=== PATIENT | female | born 1955 | race Caucasian/White ===

== ENCOUNTER 2018-10-13 08:23 | Observation (INO) ==
--- NOTE | 2018-10-13 08:25 | Emergency Department Note ---
Disposition Clinical Impression: TIA (transient ischemic attack) Disposition: Admitted As Inpatient Condition: Good Referrals: Markos Matthews MD [Primary Care Provider] - Forms: ED Satisfaction Letter Time of Disposition: 10:01 Headache HPI - General Chief Complaint: ED General Medical Stated Complaint: elevated BP, HEADACHE Time Seen by Provider: 10/13/18 08:25 Source: patient Mode of arrival: ambulatory Limitations: no limitations Nursing Notes Reviewed: Yes Vital Signs Reviewed: Yes - History of Present Illness HPI Narrative: 63-year-old female who presents today with headache and high blood pressure and not feeling well. She states she is a history of headaches and states she did not feel well this morning. She been noticing flashing lights in the left side of her eye. She states she had difficulty focusing and that her eye feels funny. She then developed headache. She states took her blood pressure was very elevated. She has a history of hypertension. She did take her blood pressure medicines this morning. She seen in sales technician home theater about it who told her that she may be having migraines that there was nothing wrong with her retina. She talked to her primary care physician about it however, she has not had a formal migraine evaluation by a neurologist. Pt Subjective Complaint: headache - Related Data Home Medications Medication Instructions Recorded Confirmed Atenolol [Tenormin] 100 mg PO DAILY 04/11/16 10/13/18 Tramadol HCl [Ultram] 50 mg PO BID 04/11/16 10/13/18 Ubidecarenone [Co Q-10] 10 mg PO DAILY 04/26/16 10/13/18 Atorvastatin Calcium [Lipitor] 20 mg PO HS 10/13/18 10/13/18 Baclofen 5 mg PO AD PRN 10/13/18 10/13/18 Diclofenac Sodium [Voltaren] 100 gm TP AD PRN 10/13/18 10/13/18 Esomeprazole Magnesium [Nexium] 20 mg PO DAILY 10/13/18 10/13/18 Lisinopril [Zestril] 10 mg PO DAILY 10/13/18 10/13/18 Allergies Allergy/AdvReac Type Severity Reaction Status Date / Time cephalexin [From Keflex] Allergy Hives Verified 11/27/16 16:29 hydromorphone [From Dilaudid] AdvReac Itching Verified 10/04/17 16:29 Review of Systems: All other systems are negative except as noted/marked Chart generated with voice recognition software Nursing notes reviewed Old records reviewed Headache PMH - Past Medical History Medical history: Reports: diabetes, hypertension Female Surgical History: Reports: cholecystectomy, hysterectomy, other Psychiatric history: Reports: anxiety - Social History Smoking Status: Never smoker Alcohol use: Reports: none Drug use: Reports: none Physical Exam General: NAD, VSS Head: normocephalic, atraumatic Eyes: EOMI, PERRLA mouth: moist mucous membranes Neck: NO CLA, Supple Chest wall: normal rise, no crepitus, no deformity noted Lungs: moving air well, no distress Heart: RRR, no murmur Abd: soft, nontender, BS normal : deferred MSK: strength equal in all four extremities Ext: moves all four extremities, no obvious deformities Skin: cap refill normal, warm, dry neuro : CN2-12 grossly intact, A&Ox3 Psych: normal affect, not anxious NIH 0 Course Vital Signs Temperature 98.7 F 10/13/18 08:24 Pulse Rate 72 10/13/18 08:24 Respiratory Rate 18 10/13/18 08:24 Blood Pressure 179/72 10/13/18 08:24 O2 Sat by Pulse Oximetry 96 10/13/18 08:24 Temperature 98.7 F 10/13/18 08:24 Pulse Rate 62 10/13/18 09:50 Respiratory Rate 16 10/13/18 09:50 Blood Pressure 172/80 10/13/18 09:50 O2 Sat by Pulse Oximetry 98 10/13/18 09:50 Oxygen Delivery Oxygen Delivery Room Air Headache - MDM Narrative Medical decision making narrative: 63-year-old female who presents today with headache not feeling well left-sided facial tingling disturbance the left visual field and perioral numbness. She states this is new for her. On arrival her NIH was 0. She has been told in the past that she may have migraines but she has had no neurologic workup for these. She has seen an sales technician home theater who told her that it was not her eyes and she seen these flashing things in the past. While she has been here she has been hypertensive. She did take her blood pressure medicine this morning. I did end up giving her clonidine as her blood pressure never did start to come down. She states that the Phenergan did kind of help with her headache some. I discussed the fact that I think she needs a TIA workup including an MRI and possibly Sa lter sounds. She is comfortable and agreeable with this plan. I spoke with Dr. Dong who agreed to accept the patient for a TIA rule out [id number]: dr dong accepted the patient - Differential Diagnosis Differential Diagnosis: Likely: migraine, tension headache, subarachnoid hemorrhage, headache - Medical Records Medical records reviewed: Yes I reviewed the patient's medical records. - Lab Data Lab results reviewed: Yes I reviewed the patient's lab results. Result diagrams: 10/13/18 08:56 10/13/18 08:56 Lab Results 10/13/18 10/13/18 10/13/18 Range/Units 08:56 08:56 08:56 WBC 10.0 (4.3-11.1) K/mcL RBC 4.98 H (3.82-4.97) M/mcL Hgb 14.7 (11.5-15.4) g/dL Hct 43.4 (35.3-44.9) % MCV 87.1 (83.0-100.0) fL MCH 29.5 (28.0-33.3) pg MCHC 33.9 (31.6-35.5) g/dL RDW 11.9 (11.5-14.5) % Plt Count 323 (140-400) K/mcL MPV 10.3 (9.4-12.4) fL Immature Gran % 0.4 (0-4) % Seg Neutrophils % 68.0 % Lymphocytes % 24.6 % Monocytes % 4.9 % Eosinophils % 1.5 % Basophils % 0.6 % Neutrophils # 6.8 (1.6-8.9) K/mcL Lymphocytes # 2.5 (0.6-4.6) K/mcL Monocytes # 0.5 (0.0-1.3) K/mcL Eosinophils # 0.2 (0.0-0.6) K/mcL Basophils # 0.1 (0.0-0.2) K/mcL PT 10.8 (9.4-12.1) Seconds INR 1.0 APTT 33.0 (26.0-36.0) Seconds Sodium (136-145) mEq/L Potassium (3.5-5.1) mEq/L Chloride (98-107) mEq/L Carbon Dioxide (23-29) mEq/L BUN (8-23) mg/dL Creatinine (0.60-1.20) mg/dL Est GFR ( Amer) (> 60) Est GFR (Non-Af Amer) (> 60) BUN/Creatinine Ratio (6-26) Glucose (70-105) mg/dL Calculated Osmolality (280-300) Calcium (8.6-10.3) mg/dL Magnesium 1.9 (1.6-2.6) mg/dL Troponin I (< 0.04) ng/mL Urine Color (Yellow) Urine Clarity (Clear) Urine pH (5.0-8.0) pH Units Ur Specific [place] (1.010-1.025) Urine Protein (Neg-Trace) mg/dL Urine Glucose (UA) (Normal) mg/dL Urine Ketones (Negative) mg/dL Urine Blood (Negative) Urine Nitrite (Negative) Urine Bilirubin (Negative) Urine Urobilinogen (Normal) mg/dL Ur Leukocyte Esterase (Negative) Ur Culture Indicated? (NO) 10/13/18 10/13/18 Range/Units 08:56 09:37 WBC (4.3-11.1) K/mcL RBC (3.82-4.97) M/mcL Hgb (11.5-15.4) g/dL Hct (35.3-44.9) % MCV (83.0-100.0) fL MCH (28.0-33.3) pg MCHC (31.6-35.5) g/dL RDW (11.5-14.5) % Plt Count (140-400) K/mcL MPV (9.4-12.4) fL Immature Gran % (0-4) % Seg Neutrophils % % Lymphocytes % % Monocytes % % Eosinophils % % Basophils % % Neutrophils # (1.6-8.9) K/mcL Lymphocytes # (0.6-4.6) K/mcL Monocytes # (0.0-1.3) K/mcL Eosinophils # (0.0-0.6) K/mcL Basophils # (0.0-0.2) K/mcL PT (9.4-12.1) Seconds INR APTT (26.0-36.0) Seconds Sodium 138 (136-145) mEq/L Potassium 4.3 (3.5-5.1) mEq/L Chloride 104 (98-107) mEq/L Carbon Dioxide 25 (23-29) mEq/L BUN 18 (8-23) mg/dL Creatinine 0.70 (0.60-1.20) mg/dL Est GFR ( Amer) > 60 (> 60) Est GFR (Non-Af Amer) > 60 (> 60) BUN/Creatinine Ratio 26 (6-26) Glucose 128 H (70-105) mg/dL Calculated Osmolality 290 (280-300) Calcium 9.1 (8.6-10.3) mg/dL Magnesium (1.6-2.6) mg/dL Troponin I < 0.03 (< 0.04) ng/mL Urine Color Light Yellow (Yellow) Urine Clarity Clear (Clear) Urine pH 5.5 (5.0-8.0) pH Units Ur Specific [place] 1.010 (1.010-1.025) Urine Protein Negative (Neg-Trace) mg/dL Urine Glucose (UA) Normal (Normal) mg/dL Urine Ketones Negative (Negative) mg/dL Urine Blood Negative (Negative) Urine Nitrite Negative (Negative) Urine Bilirubin Negative (Negative) Urine Urobilinogen Normal (Normal) mg/dL Ur Leukocyte Esterase Negative (Negative) Ur Culture Indicated? NO (NO) - Radiology Data Radiology results reviewed: Yes I reviewed the patient's radiology results. EXAMINATION: CT OF THE HEAD WITHOUT CONTRAST 10/13/2018 9:46 am TECHNIQUE: CT of the head was performed without the administration of intravenous contrast. Dose modulation, iterative reconstruction, and/or weight based adjustment of the mA/kV was utilized to reduce the radiation dose to as low as reasonably achievable. COMPARISON: 07/30/2014. HISTORY: ORDERING SYSTEM PROVIDED HISTORY: headache, htn FINDINGS: BRAIN/VENTRICLES: There is no acute intracranial hemorrhage, mass effect or midline shift. No abnormal extra-axial fluid collection. The hsieh-white differentiation is maintained without evidence of an acute infarct. There is no evidence of hydrocephalus. ORBITS: The visualized portion of the orbits demonstrate no acute abnormality. SINUSES: The visualized paranasal sinuses and mastoid air cells demonstrate no acute abnormality. SOFT TISSUES/SKULL: No acute abnormality of the visualized skull or soft tissues. CT/CT head/brain wo con IMPRESSION: 1.No acute intracranial abnormality. D/ / Bradley Madrigal MD / Bradley Madrigal MD Interpreting Provider: Bradley Madrigal MD interp by myself neg - EKG Data EKG attestation: Yes I reviewed and interpreted this EKG. EKG results narrative: EKG interpreted by myself as sinus rhythm with a rate of [address] elevation NIH Stroke Scale - Level of Consciousness LOC: Alert - LOC Questions LOC Questions: Answers both correctly - LOC Commands LOC Commands: Performs both correctly - Best Gaze Best Gaze: Normal - Visual Visual: No visual loss - Facial Palsy Facial Palsy: Normal - Motor Arms Motor Arm-Left: No drift for 10 seconds Motor Arm-Right: No drift for 10 seconds - Motor Legs Motor Leg-Left: No drift for 5 seconds Motor Leg-Right: No drift for 5 seconds - Limb Ataxia Limb Ataxia: Normal, No Ataxia - Sensory Sensory: Normal - Best Language Best Language: No aphasia - Dysarthria Dysarthria: Normal - Extinction and Inattention Extinction and Inattention: Normal - NIHSS Total Score NIHSS Total Score: 0
[2018-10-13] MEDS ORDERED: *HR* Promethazine 25 MG/ML VIAL IVP ONE (08:30)
[2018-10-13] MEDS ORDERED: cloNIDine HCl 0.1 MG TABLET PO ONE (08:30)
[2018-10-13 09:07] LABS: Basophils # 0.1 K/mcL (0.0-0.2); Basophils % 0.6 %; Eosinophils # 0.2 K/mcL (0.0-0.6); Eosinophils % 1.5 %; Hematocrit 43.4 % (35.3-44.9); Hemoglobin 14.7 g/dL (11.5-15.4); Immature Granulocytes % 0.4 % (0-4); Lymphocytes # 2.5 K/mcL (0.6-4.6); Lymphocytes % 24.6 %; Mean Corpuscular HGB Conc 33.9 g/dL (31.6-35.5); Mean Corpuscular Hemoglobin 29.5 pg (28.0-33.3); Mean Corpuscular Volume 87.1 fL (83.0-100.0); Mean Platelet Volume 10.3 fL (9.4-12.4); Monocytes # 0.5 K/mcL (0.0-1.3); Monocytes % 4.9 %; Neutrophils # 6.8 K/mcL (1.6-8.9); Platelet Count 323 K/mcL (140-400); Red Blood Count 4.98 M/mcL (3.82-4.97); Red Cell Distribution Width 11.9 % (11.5-14.5)
[2018-10-13 09:11] LABS: Prothrombin Time 10.8 Seconds (9.4-12.1)
[2018-10-13 09:21] LABS: BUN/Creatinine Ratio 26 (6-26); Blood Urea Nitrogen 18 mg/dL (8-23); Calcium 9.1 mg/dL (8.6-10.3); Carbon Dioxide 25 mEq/L (23-29); Chloride 104 mEq/L (98-107); Glucose 128 mg/dL (70-105); Osmolality,Calculated 290 (280-300); Potassium 4.3 mEq/L (3.5-5.1); Sodium 138 mEq/L (136-145); eGFR For African Americans > 60 (> 60); eGFR For Non-African Americans > 60 (> 60)
[2018-10-13 09:23] LABS: Troponin I < 0.03 ng/mL (< 0.04)
--- NOTE | 2018-10-13 09:40 | Electrocardiograph Report ---
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
[2018-10-13 09:41] LABS: Bilirubin,Urine Negative (Negative); Blood,Urine Negative (Negative); Clarity,Urine Clear (Clear); Color,Urine Light Yellow (Yellow); Glucose,Urine (UA) Normal (Normal); Ketones,Urine Negative (Negative); Leukocyte Esterase,Urine Negative (Negative); Nitrite,Urine Negative (Negative); PH,Urine 5.5 pH Units (5.0-8.0); Protein,Urine Negative (Neg-Trace); Urobilinogen,Urine Normal (Normal)
[2018-10-13] MEDS ORDERED: Acetaminophen 325 MG TABLET PO PRN (11:02)
[2018-10-13] MEDS ORDERED: Naloxone 0.4 MG/ML INJ IVP PRN (11:02)
[2018-10-13] MEDS ORDERED: DICLOFENAC 1% GEL TP PRN (15:00)
[2018-10-13 15:06] VITALS: BP 112/66
--- NOTE | 2018-10-13 18:13 | Internal Med History&Physical ---
Date of Encounter: 10/13/18 Time of Encounter: 17:15 Assessment and Plan (1) Acute focal neurologic deficit with complete resolution Current visit: Yes Status: Acute She states she feels back to her baseline now except for mild headache. I told her I felt she very likely had a migraine component causing at least some and perhaps most of her symptoms. I recommended she discuss with her PCP and possibly see a neurologist for initiation of additional migraine prevention Rx. I told her atenolol can serve as a migraine prevention agent but she is pre sently having frequent headaches despite its use and would probably benefit from additional agent. I explained Imitrex could prove useful in aborting headaches. I told her I did not feel a brain MRI was necessary at this time since head CT in emergency room showed no significant pathology. Internal Medicine - H&P: HPI Chief complaint: Face numbness, scintillating scotoma Admitted From: Emergency Dept Plans for Post Hospital Care: Home History of present illness: Ms. Rock is a 63 year old female who came to emergency room stating she "felt funny" on awakening today. A short time later she noticed a "flashing light" in her left eye visual field. She reports her left face and lip area felt numb. She felt nauseated but did not vomit. She went to work but continued to not feel well. She checked her blood pressure and found it elevated at 210/100. She came to emergency room for evaluation and was admitted to [facility] for ongoing care needs. She reports 2 previous similar episodes of "flashing light". She saw an disciplinary hearing officer after the first episode several months ago and reports eye exam was unremarkable. He told her to return if symptoms recurred. She returned after the second episode and reports ophthalmologic exam again showed no findings. He told her it could be a migraine phenomenon. She spoke with her PCP Dr. Matthews about this and received a prescription for Imitrex for prn use. She has not taken any Imitrex to date. She reports she has had headaches frequently over the past 5 years now occurring almost daily. She states the headaches often are in the occipital area but occasionally in the frontal area. She has frequent photophobia and occasional nausea with the headaches. She uses OTC medications with generally good results. She reports she has rare episodes of left face and lip numbness similar to episode that occurred today. The numbness seems to have sudden onset and resolves rapidly after variable duration. She has documented bilateral TMJ disease and has seen multiple specialists without significant improvement. She reports she also had recurrent headaches in early adulthood that essentially resolved approximately 20 years ago. Neurologic history is negative for documented strokes or seizure disorder. Past Med Surg Social Fam HX - Past Medical History Medical history: diabetes, hypertension, other Additional medical history: TMJ Psychiatric history: anxiety - Past Surgical History Surgical History: cholecystectomy, hysterectomy, other Additional surgical history: tonsilectomy - Social History Smoking Status: Never smoker Smokeless Tobacco Status: No Alcohol use: none Drug use: none Internal Medicine - H&P: Meds Atenolol [Tenormin] 100 mg PO DAILY 04/11/16 [History] Tramadol HCl [Ultram] 50 mg PO BID 04/11/16 [History] Ubidecarenone [Co Q-10] 10 mg PO DAILY 04/26/16 [History] Atorvastatin Calcium [Lipitor] 20 mg PO HS 10/13/18 [History] Baclofen 5 mg PO HS PRN 10/13/18 [History] Diclofenac Sodium [Voltaren] 1 gm TP TID PRN 10/13/18 [History] Esomeprazole Magnesium [Nexium] 20 mg PO DAILY 10/13/18 [History] Lisinopril [Zestril] 10 mg PO DAILY 10/13/18 [History] Metformin HCl [Glucophage Xr] 750 mg PO BID 10/13/18 [History] Allergy/AdvReac Type Severity Reaction Status Date / Time cephalexin [From Keflex] Allergy Hives Verified 11/27/16 16:29 hydromorphone [From Dilaudid] AdvReac Itching Verified 11/27/16 16:29 All Systems PM: A 10-system review of systems was performed and is negative for pertinent findings except as documented above in the HPI. Review of systems: Gen.: She states her weight has been stable for several months Cardiovascular: She has history of hypertension but states her blood pressures are generally well controlled. She denies DE heart failure angina DVT or pulmonary embolus. Respiratory: She smoked from approximately age [age] up to 1-1/2 packs per day. She denies chronic lung disease and does not use home oxygen. GI: She has had cholecystectomy. She denies disorders of her liver or exocrine pancreas : She denies hematuria dysuria or kidney stones Neurologic: As per history of present illness Endocrine: She was diagnosed with DM 2 approximately 2017. She has hyperlipidemia. She denies thyroid disease. Hematology/oncology: She denies blood disorders cancers or anemia Psychiatric: She has feelings of anxiety. She denies depression or other mental health diagnoses. [place] skeletal: She has TMJ. She has DJD but denies gout or other bone joint or muscle disorders. - Constitutional Vitals: Temp Pulse Resp BP Pulse Ox 97.7 F 66 16 112/66 98 10/13/18 15:15 10/13/18 15:15 10/13/18 15:15 10/13/18 15:15 10/13/18 15:15 Exam: Gen.: She is a well-developed well-nourished female resting comfortably in bed who appears in no acute distress HEENT: Head is atraumatic and normocephalic. She has no palpable temporal artery. There is no pain on palpation of her temporal area. Eyes: EOMI. There is no scleral icterus. Mouth: Mucosa is moist. She has crepitus on opening/closing the mandible at the TMJ bilaterally. Neck: Supple and nontender. There is no thyromegaly or adenopathy noted. There are no carotid bruits. Heart: Regular without murmurs gallops or ectopics Lungs: No wheezes or crackles are heard. Abdomen: Soft and nontender. No masses or guarding are noted. Extremities: There is no cyanosis edema or clubbing noted. Dorsalis pedis and posterior tibial pulses are 1-2 over 2 bilaterally. Neurologic: Mental status: She is talkative and a good historian. Cranial nerves: Smile is symmetric. Forehead wrinkles bilaterally. Tongue protrudes midline. EOMI. Motor: There is no pronator drift. Finger dexterity is symmetric bilaterally. She is able to lift both legs off the bed. Ankle flexion and extension strength against resistance is normal and symmetric. Cerebellar: Finger to nose is intact bilaterally. Skin: Warm and dry Internal Med - H&P Results - Labs CBC & Chem 7: 10/13/18 08:56 10/13/18 08:56 Labs: Short CBC 10/13/18 Range/Units 08:56 WBC 10.0 (4.3-11.1) K/mcL Hgb 14.7 (11.5-15.4) g/dL Hct 43.4 (35.3-44.9) % Plt Count 323 (140-400) K/mcL Neutrophils # 6.8 (1.6-8.9) K/mcL BMP 10/13/18 08:56 Sodium 138 Potassium 4.3 Chloride 104 Carbon Dioxide 25 BUN 18 Creatinine 0.70 Glucose 128 H Calcium 9.1 Cardiac Enzymes 10/13/18 Range/Units 08:56 Troponin I < 0.03 (< 0.04) ng/mL Urine 10/13/18 Range/Units 09:37 Urine Color Light Yellow (Yellow) Urine Clarity Clear (Clear) Urine pH 5.5 (5.0-8.0) pH Units Ur Specific [place] 1.010 (1.010-1.025) Urine Protein Negative (Neg-Trace) mg/dL Urine Glucose (UA) Normal (Normal) mg/dL - Impressions ITS Impressions Chest X-Ray 10/13/18 08:30 IMPRESSION: No acute abnormality. D/ / Jeremiah Jean MD / Jeremiah Jean MD Interpreting Provider: Jeremiah Jean MD Head CT 10/13/18 08:30 IMPRESSION: 1.No acute intracranial abnormality. D/ / Bradley Madrigal MD / Bradley Madrigal MD Interpreting Provider: Bradley Madrigal MD
--- NOTE | 2018-10-13 18:34 | Discharge Summary ---
Date of Encounter: 10/13/18 Time of Encounter: 17:15 - Discharge Diagnosis (1) Acute focal neurologic deficit with complete resolution Priority: Primary Status: Acute Hospital course: Ms. Rock is a 63 year old female who came to emergency room stating she "felt funny" on awakening today. A short time later she noticed a "flashing light" in her left eye visual field. She reports her left face and lip area felt numb. She felt nauseated but did not vomit. She went to work but continued to not feel well. She checked her blood pressure and found it elevated at 210/100. She came to emergency room for evaluation and was admitted to [facility] for ongoing care needs. Initial orders were written by the emergency room physician. I saw her the afternoon of October 13 and performed a history physical and discharge. By the time I saw her she stated her facial numbness and "flashing light" had resolved. I told her I felt she likely had migraine phenomena causing some if not most symptoms. I explained she would likely benefit from additional migraine prevention medication. I told her Imitrex could likely prove useful to abort migraine headaches. She will talk with her PCP about referral to neurology for additional evaluation. She stated she felt improved and wished to be discharged home the afternoon of October 13. She will follow with her PCP Dr. Matthews within 1 week. - Time Spent with Patient Total time spent providing and/or coordinating discharge services: - Discharge Medications Prescriptions: Continued Tramadol HCl [Ultram] 50 mg PO BID Atenolol [Tenormin] 100 mg PO DAILY Ubidecarenone [Co Q-10] 10 mg PO DAILY Atorvastatin Calcium [Lipitor] 20 mg PO HS Baclofen 5 mg PO HS PRN PRN Reason: Pain Lisinopril [Zestril] 10 mg PO DAILY Esomeprazole Magnesium [Nexium] 20 mg PO DAILY Diclofenac Sodium [Voltaren] 1 gm TP TID PRN PRN Reason: Pain Metformin HCl [Glucophage Xr] 750 mg PO BID Home Medications: Atenolol [Tenormin] 100 mg PO DAILY 04/11/16 [History] Tramadol HCl [Ultram] 50 mg PO BID 04/11/16 [History] Ubidecarenone [Co Q-10] 10 mg PO DAILY 04/26/16 [History] Atorvastatin Calcium [Lipitor] 20 mg PO HS 10/13/18 [History] Baclofen 5 mg PO HS PRN 10/13/18 [History] Diclofenac Sodium [Voltaren] 1 gm TP TID PRN 10/13/18 [History] Esomeprazole Magnesium [Nexium] 20 mg PO DAILY 10/13/18 [History] Lisinopril [Zestril] 10 mg PO DAILY 10/13/18 [History] Metformin HCl [Glucophage Xr] 750 mg PO BID 10/13/18 [History] Allergies/Adverse Reactions: Allergy/AdvReac Type Severity Reaction Status Date / Time cephalexin [From Keflex] Allergy Hives Verified 11/27/16 16:29 hydromorphone [From Dilaudid] AdvReac Itching Verified 11/27/16 16:29 Date of admission: 10/13/18 10:01 Primary care physician: Markos Matthews MD - Constitutional Vitals: Temp Pulse Resp BP Pulse Ox 97.7 F 66 16 112/66 98 10/13/18 15:15 10/13/18 15:15 10/13/18 15:15 10/13/18 15:15 10/13/18 15:15 - Patient Status Disposition: Home, Self-Care Condition: Good - Discharge Instructions Follow Up With: Markos Matthews MD [Primary Care Provider] - 1 week - Diet and Activity Activity: resume usual activities as tolerated Diet: advance to your usual diet
[2018-10-13] MEDS ORDERED: Baclofen 10 MG TABLET PO PRN (21:00)
[2018-10-13] MEDS ORDERED: traMADol 50 MG TABLET PO SCH (21:00)
== END 2018-10-13 18:54 | disposition home or self-care (01) ==
LOC: EMEROOPIK 08:23 → INPPIK 08:23
PROVIDERS: ADMIT Internal Medicine; ATTEND Internal Medicine